=== PATIENT | male | born 1990 | race Caucasian/White ===

== ENCOUNTER 2016-09-04 09:32 | Emergency (ER) | payer OTHER ==
[~2016-09-04] VITALS: Ht 175.3 cm; Wt 99.7 kg
[~2016-09-04 09:32] MED LIST: CLR10 PO; IMT50 PO; LVX100 PO
[2016-09-04 09:36] VITALS: BP 154/91; PULSE 83; TEMP 36.8; O2SAT 98; Ht 175.3 cm; Wt 99.7 kg
[2016-09-04] MEDS ORDERED: AMOX875T PO (10:15)
--- NOTE | 2016-09-04 10:16 | EMERGENCY ROOM VISIT NOTE ---
ED Visit Note First contact with patient: 09:42 CHIEF COMPLAINT: Cold symptoms HISTORY OF PRESENT ILLNESS: This is a 26-year-old male patient who presents to the emergency department ambulatory complaining of sinus congestion, pressure, sore throat, runny nose and sinus headache for the last 4 days. The patient states he had a fever this morning of 102F but is not certain if his thermometer was working correctly. The patient does not complain of a abdominal pain, nausea, or vomiting. He denies any neck pain or neck stiffness. The patient has not had any shortness of breath. The patient's has had similar symptoms. The patient has taken ibuprofen. REVIEW OF SYSTEMS: A 10 system review of systems was completed with positives and pertinent negatives listed in the HPI. ALLERGIES: Sulfa MEDICATIONS: Fluvoxamine, sumatriptan, Claritin PMH: OCD, migraines SOCIAL HISTORY: The patient is . He lives locally with his . He does not smoke PHYSICAL EXAM: Vital Signs: Reviewed Nurse's notes, temperature 36.8C orally, the remainder of the vital signs were normal. GENERAL: This is a 26-year-old male, in no acute distress, non toxic in appearance, nondiaphoretic, well-developed well-nourished. SKIN: The skin was without rashes, erythema, edema, or bruising. Capillary reflex less than 2 seconds. HEAD: Normocephalic atraumatic. EARS: External auditory canals clear, tympanic membrane with serous effusion bilaterally EYES: Pupils equal round and reactive to light and accommodation. Conjunctivae without injection, sclerae without icterus. Extraocular movements intact. NOSE: Patent, turbinates inflamed with clear discharge. There is moderate right -sided maxillary and frontal sinus tenderness. MOUTH: Mucous membranes moist. Tonsils are not enlarged and not erythematous without exudate. Pharynx negative for postnasal drip. NECK: Supple without nuchal rigidity. There is no meningismus. Anterior cervical lymphadenopathy without posterior cervical, or auricular, or submandibular lymphadenopathy. HEART: Regular rate and rhythm without murmurs gallops or rubs. LUNGS: Clear to auscultation bilaterally without wheezes, rales or rhonchi. NEURO: Patient was alert and oriented to person place and time. ED COURSE: I examined the patient. The patient has symptoms suggestive of sinusitis. He reports a fever, sinus pressure, congestion, runny nose and sore throat. He has not had any cough, trouble breathing, chest pain. He has had he describes as a sinus headache. He is nontoxic in appearance and does not have any nuchal rigidity and meningitis is considered less likely. He should monitor closely for worsening symptoms and return if he develops any worsening symptoms. The patient will be placed on Augmentin twice daily for 10 days. He should try [id number] cold medications. He should return with worsening symptoms. The patient was discharged home in good condition. Problem List Medical Problems: (1) Asthma Status: Chronic Current/Historical Medications Scheduled Amoxicillin & Pot Clavulanate (Augmentin 875-125 mg), 1 TAB PO BID Fluvoxamine Maleate (Fluvoxamine Maleate), 100 MG PO HS Loratadine (Claritin), 10 MG PO DAILY Miscellaneous Medications Sumatriptan Succinate (Sumatriptan Succinate), 50 MG PO Allergies Coded Allergies: Sulfa Antibiotics (Verified Allergy, Severe, RASH, 09/04/16) Vital Signs Date Time Temp Pulse Resp B/P Pulse Ox O2 Delivery O2 Flow Rate FiO2 09/04/16 09:36 36.8 83 17 154/91 98 Room Air Departure Information Impression Primary Impression: Sinusitis Dispostion Home / Self-Care Condition GOOD Prescriptions Amoxicillin & Pot Clavulanate (Augmentin 875-125 mg) 1 Tab Tab 1 TAB PO BID for 10 Days, #20 TAB Prov: Lucinda Pineda PA-C 09/04/16 Referrals No Doctor, Assigned (PCP) Forms HOME CARE DOCUMENTATION FORM, IMPORTANT VISIT INFORMATION, Work Instructions Return To Work: 1 day Patient Instructions ED Sinusitis Abx Tx, My [facility] Additional Instructions Augmentin every 12 hours for 10 days Abse-jxg-yjfhyls cold and flu medications Return with any worsening symptoms, severe neck stiffness, severe headache or generalized worsening symptoms Otherwise, follow up with your family doctor in 3-5 days if symptoms persist Problem Qualifiers Primary Impression: Sinusitis
== END 2016-09-04 10:20 | disposition home or self-care (01) ==
LOC: C.EDB 09:33 → C.EDA 10:20
DX: J32.9 Chronic sinusitis, unspecified (principal); F42.9 Obsessive-compulsive disorder, unspecified; J45.909 Unspecified asthma, uncomplicated; Z79.899 Other long term (current) drug therapy